=== PATIENT | male | born 1950 | race Caucasian/White ===

== ENCOUNTER 2017-07-17 22:08 | Emergency (ER) | payer MEDICARE, BC ==
--- NOTE | 2017-07-17 22:57 | EDM.PDOC ---
ED HPI GENERAL MEDICAL PROBLEM - General Chief Complaint: Respiratory Problem Stated Complaint: SHORTNESS OF BREATH Time Seen by Provider: 07/17/17 22:31 Source of Information: Reports: Patient History Limitations: Reports: No Limitations - History of Present Illness INITIAL COMMENTS - FREE TEXT/NARRATIVE: This patient is a pleasant obese 67 year old male that presents to the ER. Patient reports that for about 1 1/2 years he has been sleeping several hours a day and sometimes is only awake for 6-7 hours a day. He also reports that for about 1 1/2 years having episodes that come and go with what is described as "tingling" in the right side of his chest that radiates into his right neck. The patient reports that he gets these episodes rarely. The patient reports the last 10 days he has had shortness of breath. He reports the last 3-4 days his shortness of breath has become much worse. The patient reports then today with activity he was walking to his truck, had the chest pain, and shortness of breath. He reports that he got to his truck and had to sit there several minutes for the chest pain and shortness of breath to resolve. He reports this happened two separate occasions today with activity. He reports the shortness of breath today was so bad that it scared him. He reports that he could not breath at all and it felt like he suffocating. The patient reports the chest pain accompanied his shortness of breath both times. The patient does report that he will start out sleeping in bed on several pillows keeping him propped in an upward position so he can breath, then will sleep on his stomach because he can not breath laying flat chronically. He reports then he will go sleep on the couch in an upward position so he can breath. The patient also reports that his suggested he come to the ER because he could not talk on the phone without being very short of breath. The patient reports that he has not seen his PCP in about 1 year. He reports he has never seen a [facility] [employer] [facility] or specialist. The patient reports currently in the ER that he has 0/10 chest pain or "tingling." He reports that he is still mildly short of breath, not nearly as bad as earlier today. Patient reports he should have come to the ER about 3- 4 days ago and earlier today when his shortness of breath and chest pain scared him. Right now the patient is alert and oriented. He is conversing in full and complete sentences without difficulty right now. He is currently in a sitting position on the stretcher and will not lay flat back on the stretcher. The patient does report that he has chronic swelling in his BLE and has been on Lasix for this before. Patient denies history of heart failure. The patient denies fernandez, dizziness, n, v, d, f, congestion, drainage, cough, neck pain, neck stiffness, abd pain, urinary/bowel changes, rashes. Some possible differentials are SC, Heart Failure, Angina, Sleep Apnea, COPD, Pneumonia, PE. I have ordered labs and CXR, EKG at this time. Onset: Today Location: Reports: Chest Quality: Reports: Other ("tingling") Severity: Moderate Improves with: Reports: Rest Worsens with: Reports: Other (Activity) Context: Reports: Activity Associated Symptoms: Reports: Chest Pain, Shortness of Breath. Denies: Confusion, Cough, cough w sputum, Diaphoresis, Fever/Chills, Headaches, Loss of Appetite, Malaise, Nausea/Vomiting, Rash, Seizure, Syncope, Weakness - Related Data Allergies Allergy/AdvReac Type Severity Reaction Status Date / Time lisinopril Allergy Body Aches Verified 07/17/17 22:20 Home Meds: Home Meds Latanoprost [Xalatan] 1 drop EYEBOTH BEDTIME 05/20/14 [History] Levothyroxine 175 mcg PO ACBRK 05/20/14 [History] Metoprolol Tartrate 12.5 mg PO BID 05/20/14 [History] Rosuvastatin [Crestor] 5 mg PO DAILY 05/20/14 [History] Verapamil [Calan SR] 240 mg PO DAILY 05/20/14 [History] Aspirin [Adult Low Dose Aspirin EC] 81 mg PO DAILY 07/17/17 [History] DULoxetine HCl [Duloxetine HCl] 20 mg PO DAILY 07/17/17 [History] metFORMIN HCl [Metformin HCl ER] 500 mg PO DAILY 07/17/17 [History] Past Medical History Cardiovascular History: Reports: Hypertension Neurological History: Reports: TIA Endocrine/Metabolic History: Reports: Diabetes, Type II Social & Family History - Recreational Drug Use Recreational Drug Use: No ED ROS GENERAL - Review of Systems Review Of Systems: See Below Constitutional: Reports: Other (Sleeping prolonged periods of the day) HEENT: Reports: No Symptoms Respiratory: Reports: Shortness of Breath. Denies: Wheezing, Cough, Sputum, Hemoptysis Cardiovascular: Reports: Chest Pain, Dyspnea on Exertion, Edema Endocrine: Reports: No Symptoms GI/Abdominal: Reports: No Symptoms : Reports: No Symptoms Musculoskeletal: Reports: No Symptoms Skin: Reports: No Symptoms Neurological: Reports: No Symptoms Psychiatric: Reports: No Symptoms Hematologic/Lymphatic: Reports: No Symptoms Immunologic: Reports: No Symptoms ED EXAM, GENERAL - Physical Exam Exam: See Below Exam Limited By: No Limitations General Appearance: Alert, WD/WN, No Apparent Distress, Obese Eye Exam: Bilateral Eye: Normal Inspection, PERRL Ears: Normal External Exam, Normal Canal, Hearing Grossly Normal, Normal TMs Ear Exam: Bilateral Ear: Auricle Normal, Canal Normal, TM normal Nose: Normal Inspection, Normal Mucosa, No Blood Throat/Mouth: Normal Inspection, Normal Lips, Normal Teeth, Normal Gums, Normal Oropharynx, Normal Voice, No Airway Compromise Head: Atraumatic, Normocephalic Neck: Normal Inspection, Supple, Non-Tender, Full Range of Motion Respiratory/Chest: No Respiratory Distress, Lungs Clear, Normal Breath Sounds, No Accessory Muscle Use, Chest Non-Tender. No: Respiratory Distress Cardiovascular: Normal Peripheral Pulses, Regular Rate, Rhythm, No Edema, No Gallop, No JVD, No Murmur, No Rub Peripheral Pulses: 2+: Radial (L), Radial (R), Posterior Tibial (L), Posterior Tibial (R) GI/Abdominal: Soft, Non-Tender Back Exam: Normal Inspection, Full Range of Motion Extremities: Normal Inspection, Normal Range of Motion, Non-Tender, Normal Capillary Refill, Pedal Edema (+1 BLE) Neurological: Alert, Oriented, Normal Cognition Psychiatric: Normal Affect, Normal Mood Skin Exam: Warm, Dry, Intact, Normal Color, No Rash Lymphatic: No Adenopathy EKG INTERPRETATION EKG Date: 07/17/17 Time: 23:18 Rhythm: NSR Rate (Beats/Min): 81 [place]: Normal P-Wave: Present QRS: Normal Comparison: NA - No Prior EKG Course - Vital Signs Last Recorded V/S: Last Vital Signs Temp 98 F 07/17/17 22:10 Pulse 85 07/17/17 22:10 Resp 20 07/17/17 22:10 BP 141/76 H 07/17/17 22:10 Pulse Ox 88 L 07/17/17 22:10 - Orders/Labs/Meds Orders: Active Orders 24 hr Category Date Time Status Chest 2V [CR] Stat Exams 07/17/17 22:39 Taken Aspirin Med 07/18/17 00:03 Once 324 mg PO ONETIME ONE Labs: Laboratory Tests 07/17/17 07/17/17 07/17/17 Range/Units 22:55 22:55 22:55 WBC 8.1 (5.0-10.0) 10^3/uL RBC 5.08 (4.50-6.00) 10^6/uL Hgb 14.6 (14.0-18.0) g/dL Hct 42.7 (40.0-54.0) % MCV 84.1 (82.0-94.0) fL MCH 28.7 (27.0-32.0) pg MCHC 34.2 (33.0-38.0) g/dL RDW Coeff of Comfort 13.9 (11.0-15.0) % Plt Count 190 (150-400) 10^3/uL Neut % (Auto) 46.2 (35-85) % Lymph % (Auto) 39.3 (10-55) % Dukes % (Auto) 9.4 (0-16) % Eos % (Auto) 4.2 (0-5) % Baso % (Auto) 0.9 (0-3) % Neut # (Auto) 3.75 (1.80-7.00) 10^3/uL Lymph # (Auto) 3.18 (1.00-4.80) 10^3/uL Dukes # (Auto) 0.76 (0.00-0.80) 10^3/uL Eos # (Auto) 0.34 (0.00-0.45) 10^3/uL Baso # (Auto) 0.07 10^3/uL D-Dimer, Quantitative 0.23 (0.00-0.50) Sodium 137 (136-145) mEq/L Potassium 3.9 (3.5-5.0) mEq/L Chloride 99 (98-106) mEq/L Carbon Dioxide 27 (21-32) mmol/L BUN 17 (7-18) mg/dL Creatinine 1.2 (0.7-1.3) mg/dL Est Cr Clr Drug Dosing 57.79 mL/min Estimated GFR (MDRD) > 60 (>=60) mL/min Glucose 364 H* D (75-99) mg/dL Calcium 9.3 (8.4-10.1) mg/dL Total Bilirubin 0.6 (0.0-1.0) mg/dL AST 42 H (15-37) U/L ALT 63 (12-78) U/L Alkaline Phosphatase 82 (46-116) U/L Creatine Kinase 236 H (35-232) U/L Troponin I < 0.017 (0.00-0.06) ng/mL C-Reactive Protein 0.7 (0.2-0.8) mg/dL NT-Pro-B Natriuret Pep 23 (0-1000) pg/mL Total Protein 8.0 (6.4-8.2) g/dL Albumin 3.8 (3.4-5.0) g/dL - Radiology Interpretation Free Text/Narrative:: CXR: No infiltrates, no pulmonary edema, no cardiac enlargement. - Re-Assessments/Exams Free Text/Narrative Re-Assessment/Exam: 07/17/17 23:58 I called and spoke to Dr. Osborn Occupancy Specialist at [facility]. I have discussed patient case and history with her. She reports that she feels this patient shoulder be transferred for further work up and evaluation from a cardiology and respiratory standpoint. This is due to his two episodes today of chest pain and shortness of breath. She also feels his oxygen saturation with hypoxia is concerning with this chest pain and shortness of breath. I have discussed with the patient and about discussing with [employer] [facility]. I discussed with patient his weight, sleep apnea, chest pain, shortness of breath , diabetes, hypertension and how is at an extreme risk for developing SC, Stroke , , PE. I explained to him I believe he is a "ticking time bomb." The patient agrees completely. He reports he knows that something bad is going to happen to him soon. The patient does report to me that he does want to be transferred to [facility]. He reports that today scared him and he is scared to go home. He feels that if he goes home that something bad possibly is going to happen. The patient has now reported to me that he does have sleep apnea and has a C-PAP machine at home, but does not use it. The patient oxygen saturation upon arrival to ER was 88% RA, now in ER is 93% RA. Dr. Oliveros is the hospitalist accepting. Departure - Departure Time of Disposition: 00:05 Disposition: DC/Tfer to [facility] 02 Condition: Fair Clinical Impression: Dyspnea on exertion, Hyperglycemia, Hypoxia Chest pain Qualifiers: Chest pain type: unspecified Qualified Code(s): R07.9 - Chest pain, unspecified Obesity Qualifiers: Obesity type: due to excess calories Obesity classification: unspecified obesity classification Serious obesity comorbidity presence: unspecified whether serious comorbidity present Qualified Code(s): E66.09 - Other obesity due to excess calories - Discharge Information Referrals: Orlando Knight MD [Primary Care Provider] - Forms: ED Department Discharge - My Orders Last 24 Hours: My Active Orders 07/17/17 22:39 Chest 2V [CR] Stat 07/18/17 00:03 Aspirin 324 mg PO ONETIME ONE - Assessment/Plan Last 24 Hours: My Active Orders 07/17/17 22:39 Chest 2V [CR] Stat 07/18/17 00:03 Aspirin 324 mg PO ONETIME ONE Plan: PLEASE SEE RN NOTE FOR PFSH. This patient is being transferred to [facility]. The patient is being transferred via ALS for hypoxia and cardiac monitoring. The risk for transfer are MVC, , cardiac arrest, hypoxia, condition worsening, SC, Stroke. The benefits of transfer are going to a facility with higher level of care, [facility] [employer] [facility], pulmonary, and ability to perform more advanced cardiac interventioning with [employer] on site. The risk of staying in [place] are , SC, Stroke, Cardiac arrest, not having speciality care, not having [employer], not having pulmonary. The benefits of staying in [place] are close to home.
[2017-07-17 23:23] LABS: CHLORIDE,CL 99 mEq/L (98-106); SODIUM,NA 137 mEq/L (136-145)
[2017-07-18] MEDS ORDERED: Aspirin 81 MG Tab.Chew PO ONE (00:03)
[2017-07-18 01:44] VITALS: BP 128/80
== END 2017-07-18 02:30 ==
LOC: CC.ED 22:08
DX: R07.9 Chest pain, unspecified (principal); R06.00 Dyspnea, unspecified; R73.9 Hyperglycemia, unspecified; I10 Essential (primary) hypertension; R09.02 Hypoxemia; E66.09 Other obesity due to excess calories; E11.9 Type 2 diabetes mellitus without complications; Z79.82 Long term (current) use of aspirin; Z79.84 Long term (current) use of oral hypoglycemic drugs; Z86.73 Personal history of transient ischemic attack (TIA), and cerebral infarction without residual deficits; Z88.8 Allergy status to other drugs, medicaments and biological substances; Z68.42 Body mass index [BMI] 45.0-49.9, adult
CPT/HCPCS: 36415; 71020; 80053; 82550; 83880; 84484; 85025; 85379; 86140; 93005; 99285; A9270; 93010